=== PATIENT | female | born 1975 | race Caucasian/White ===

== ENCOUNTER 2023-02-28 13:46 | Outpatient (AMB) | payer OTHER, SELFPAY ==
--- NOTE | 2023-02-28 13:53 | MHC.OFFVIS ---
Intake Vital Signs 02/28/23 13:55 Height 5 ft 3 in Weight 169 lb 8 oz BMI 30.0 BP 138/84 Blood Pressure Location Rt brachial Position Sitting Pulse 64 Pulse Source Pulse Oximeter Pulse Oximetry (%) 98 Oxygen Delivery Method Room Air Intake Visit Reasons: [employer]OR - Cervical radiculopathy-LVM Intake Note: Pt presents today to establish care after neck surgery a year ago, since surgery she has (L) arm numbness all the time c nerve pain, states she has shooting pain down both legs c swelling . Allergies topiramate [From Topamax] Allergy (Severe, Verified 02/13/23 13:21) Chest Pain bisacodyl Allergy (Unknown, Verified 02/13/23 13:21) Unknown bupropion [From Wellbutrin SR] Allergy (Unknown, Verified 02/13/23 13:21) Chest Pain HPI HPI Comments History of Present Illness Details Right handed 48-yr-old female presents for neurological evaluation of LUE and BLE pain/paresthesias. Pt reports she has had neck issues for several years. She was seeing Dr Beltran for cervical radiculopathy, cervical stenosis, and?likely early myelopathy with predominantly RUE paresthia s/s. She underwent ACDF repair in Feb 2023. Immediately following the ACDF repair, pt developed upper chest numbness, ongoing neck tightness, constant LUE numbing pain (along inner aspect of arm through 3rd-5th fingers) and intermittent swelling, and intermittent BLE numbing pain and swelling. Her RUE symptoms improved. She had f/u w/ Dr Beltran who per pt, felt she had had improvements and her s/s were likely expected post-surgical changes. Thereafter, she had seen Dr Carvalho, who started her on high dose Gabapentin and increased tizanidine, which has helped w/ the arm pain. However, Dr Carvalho could not follow her for pain management. Since, she has since been seeing Dr Jackson at [facility], who is tapering pt off Gabapentin and starting her on Pregabalin- in hopes of alleviating some cognitive difficulties. She is still on Tizanidine and Oxycodone prn. She has been doing PT at [facility], which has helped the chest numbness, but continues to have LUE and BLE pain/numbness. She just had f/u c-spine MRI this week- results c/w C5-6 cervical myelomalacia and neural foraminal narrowing. Patient endorses: sleep difficulties, snoring, weight gain, bruxism. She also has migraine, sometimes with aura, a/w pressure pain, photo/phonophobia, N/V. Recently started on Aimovig as she was waking up everyday with a migraine- she feels this is helping. 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 C-spine MRI w/o, 02/26/23, [facility]: FINDINGS: There is mild reversal of the cervical lordosis. No subluxation is noted. Since the prior examination, the patient has undergone ACDF at C5-C6 and C6-C7. Susceptibility artifact from surgical hardware is noted. Subtle loss of height of C3-C4 is noted, and marginal spurring is present at this level as well as C5-C6 and C6-C7. The visualized posterior cranial fossa structures and cervicomedullary junction are unremarkable. Compression of the cervical cord at C5-C6 and C6-C7 is no longer present. T2 bright signal is present within the cervical cord (right greater than left) at C5-C6. The paraspinal soft tissues and visualized vertebral artery flow voids are unremarkable. C2-C3: Subtle left marginal spurring. No central canal or right foraminal stenosis. Minimal left foraminal narrowing. C3-C4: Minimal broad-based posterior disc-osteophyte complex with left-sided marginal spurring. No central canal stenosis. No significant foraminal narrowing. C4-C5: Subtle broad central disc protrusion. No significant central canal or foraminal narrowing. C5-C6: Postoperative changes as noted above. Right uncovertebral spurring is again noted. Central canal narrowing has essentially resolved. Mild to mild-moderate right foraminal narrowing. No left foraminal stenosis. C6-C7: Postoperative changes as above. Central canal stenosis is resolved. No significant foraminal narrowing. C7-T1: No central canal or foraminal stenosis. IMPRESSION: 1. Degenerative and postoperative changes of the cervical spine. Cord compression at C5-C6 and C6-C7 is no longer present. However, there is T2 bright signal within the cervical cord at C5-C6 which is compatible with myelomalacia. 2. Mild to mild-moderate right foraminal narrowing at C5-C6 due to marginal spurring. [facility] Medical History (Updated 02/28/23 @ 17:15 by PAMELA Whitehead) Complex renal cyst Calculus of kidney and ureter Raynauds disease Insomnia Depression Herpetic gingivostomatitis Social phobia Surgical History H/O arthrodesis Hx of discectomy Family History Father Seizures Kidney disease Cerebrovascular accident (CVA) Diabetes Thyroid disease Dementia Prostate cancer Brother Rheumatoid arthritis Urolith Brother Alcoholism Mother Lung tumor Diabetes Brother FAP (familial adenomatous polyposis) Brother Heart murmur Malignant tumor of testis Thyroid cancer Skin cancer Paternal Aunt Cerebrovascular accident (CVA) Social History (Updated 02/28/23 @ 14:05 by Amee Hurley) Household Members: Spouse and Children Alcohol intake: current Patient Tobacco Use Status: Never used Tobacco Review of Systems Const All systems reviewed & are unremarkable except as noted in HPI and below Physical Exam Vital Signs: Last Vital Signs Pulse 64 02/28/23 13:55 BP 138/84 02/28/23 13:55 Pulse Ox 98 02/28/23 13:55 Oxygen Delivery Method Room Air 02/28/23 13:55 BMI result Body Mass Index 30.0 Const General: cooperative and no acute distress Orientation/consciousness: patient oriented x3 HEENT Head: Yes normocephalic Resp Effort & Inspection: normal respiratory effort and able to speak in complete sentences Neuro Other: Bilateral jaw tightness, lower frontal teeth wearing Bilateral posterior cervical and upper trap tightness and tenderness. No pronator drift- although very mild postural tremor. General: patient oriented x3, gait normal and CN's II-XI intact bilaterally Gait exam (Neuro): Normal gait present Motor exam (neuro): 5/5 motor strength present throughout Sensory Exam: double simultaneous stimulation for sensation normal Deep tendon reflexes (DTR's): Right triceps reflex intensity grade: 3+, Left triceps reflex intensity grade: 2+, Rt Biceps (C5, C6): 3+, Left biceps reflex intensity grade: 2+, Right brachioradialis reflex intensity grade: 2+, Left brachioradialis reflex intensity grade: 2+, Right patellar reflex intensity grade: 2+, Left patellar reflex intensity grade: 2+, Right ankle reflex intensity grade: 2+ and Left ankle reflex intensity grade: 2+ Psych Appearance: grossly normal Mental Status: mental status grossly normal Speech and movement: Normal speech and movement present Affect: normal affect Attitude: cooperative Thought process: Normal thought process present Assessment & Plan Assessment & Plan (1) Cervical myelopathy: Code(s): G95.9 - Disease of spinal cord, unspecified (2) Tremor: Code(s): R25.1 - Tremor, unspecified (3) Paresthesias: Code(s): R20.2 - Paresthesia of skin (4) Sleep difficulties: Code(s): G47.9 - Sleep disorder, unspecified (5) Snoring: Code(s): R06.83 - Snoring (6) Excessive daytime sleepiness: Code(s): G47.19 - Other hypersomnia (7) Migraine with aura: Code(s): G43.109 - Migraine with aura, not intractable, without status migrainosus Plan Pt advised to undergo BUE EMG/NCS. Hold zolpidem. Trial Amitryptiline 10-30mg qhs- in hopes this helps pain, paresthesias, sleep. Trial alpha-lipoic acid 200-600mg qd. Continue PT. Pt advised to undergo HST to assess for sleep apnea. She may continue Aimovig- would monitor her Raynaud's s/s in setting of this CGRP MaB receptor antagonist. Pt may benefit from trying Nerivio for migraine / pain management. Future considerations- pain management referal. f/u upon review of above, and in-clinic in 3 months or sooner. Orders: Orders RT home sleep study Today G47.19 - Other hypersomnia, G47.9 - Sleep disorder, unspecified, R06.83 - Snoring NE electromyogram (EMG) Today G95.9 - Disease of spinal cord, unspecified, R20.2 - Paresthesia of skin, R25.1 - Tremor, unspecified Medications: New amitriptyline 10 - 30 mg (1 - 3 x 10 mg) PO BEDTIME 30 days 90 tabs 1RF alpha lipoic acid 200 - 600 mg (1 - 3 x 200 mg) PO DAILY 30 days 90 caps 1RF Coding Level of Care Code New Pt Level 4 (63475) Diagnoses Cervical myelopathy G95.9 Tremor R25.1 Paresthesias R20.2 Sleep difficulties G47.9 Snoring R06.83 Excessive daytime sleepiness G47.19 Migraine with aura G43.109
[2023-02-28 13:55] VITALS: BP 138/84; PULSE 64; O2SAT 98
== END 2023-02-28 15:34 | disposition home or self-care (01) ==
PROVIDERS: Visit Provider Nurse Practitioner Family
DX: G95.9 Disease of spinal cord, unspecified (principal); R25.1 Tremor, unspecified; R20.2 Paresthesia of skin; G47.9 Sleep disorder, unspecified; R06.83 Snoring; G47.19 Other hypersomnia; G43.109 Migraine with aura, not intractable, without status migrainosus
CPT/HCPCS: 99204

== ENCOUNTER → 2023-02-28 13:46 | Outpatient (BNVA) | payer OTHER, SELFPAY | PROVIDERS: Visit Provider Nurse Practitioner Family ==

== ENCOUNTER → 2023-04-18 08:36 | Outpatient (REF) | payer OTHER, SELFPAY | LOC: HO.SL 08:36 | PROVIDERS: PCP Family Medicine; Visit Provider Nurse Practitioner Family | DX: G47.9 Sleep disorder, unspecified (principal); R06.83 Snoring; G47.19 Other hypersomnia | CPT/HCPCS: 95806 ==

== ENCOUNTER → 2023-04-18 08:46 | Outpatient (BNV) | payer OTHER, SELFPAY | PROVIDERS: PCP Family Medicine; Visit Provider Psychiatry & Neurology Neurology | DX: R06.83 Snoring (principal) | CPT/HCPCS: 95806 ==

== ENCOUNTER 2023-06-13 08:45 | Outpatient (AMB) | payer OTHER, SELFPAY ==
--- NOTE | 2023-06-13 09:03 | A.OFFVIS_ITS ---
Intake Vital Signs 06/13/23 09:06 Height 5 ft 3 in BP 110/82 Blood Pressure Location Rt brachial Position Sitting Pulse 132 H Pulse Source Pulse Oximeter Pulse Oximetry (%) 98 Oxygen Delivery Method Room Air Intake Visit Reasons: 3month follow up/ Cervical radiculopathy-Confirmed Intake Note: Patient presents for 3 month follow up. [facility] never called for neurological testing but I have one in [place]. amitryptilene pished back due to weight gain Allergies topiramate [From Topamax] Allergy (Severe, Verified 06/13/23 09:06) Chest Pain bisacodyl Allergy (Unknown, Verified 06/13/23 09:06) Unknown bupropion [From Wellbutrin SR] Allergy (Unknown, Verified 06/13/23 09:06) Chest Pain Medication List - Last Reconciled 06/13/23 by PAMELA Whitehead acyclovir 200 mg PO TID alpha lipoic acid 200 - 600 mg (1 - 3 x 200 mg) PO DAILY 30 days alprazolam 0.25 mg PO TID amitriptyline 10 - 30 mg (1 - 3 x 10 mg) PO BEDTIME 30 days cetirizine (Zyrtec) 10 mg PO DAILY PRN duloxetine 60 mg PO DAILY erenumab-aooe (Aimovig Autoinjector) mg subcut fluticasone furoate 50 mcg/actuation inhalation gabapentin 600 mg PO TID ibuprofen 600 mg PO Q8H PRN levonorgestrel-ethinyl estrad 0.15-0.03 mg (Altavera (28)) 1 tab PO DAILY oxycodone 5 mg PO BID PRN pregabalin 75 mg PO DAILY sumatriptan succinate 100 mg PO Q2-4H PRN tizanidine 4 mg PO TID PRN zolpidem 10 mg PO BEDTIME HPI HPI Comments History of Present Illness Details 48-yr-old female presents for f/u visit. Pt denies any significant interval medical changes. In the past month, she has had 7 migraine days, and has a daily low level headache. She continues to have ongoing neck pain- the EMG- is scheduled 06/29/23. Pt reports she recently had a 5 day migraine. She did start Amitriptyline up to 30mg qhs- but PCP advised her to decrease it to 10mg qhs, as she had gained 15 lbs since starting it. She has resumed Aimovig x's 3 months, but not seeing significant benefit. The Sumatriptan helps but makes her very nausea. Will use Oxycodone as rescue. REPLACED BY [facility] Medical History (Updated 02/28/23 @ 17:15 by PAMELA Whitehead) Complex renal cyst Calculus of kidney and ureter Raynauds disease Insomnia Depression Herpetic gingivostomatitis Social phobia Surgical History H/O arthrodesis Hx of discectomy Family History Father Seizures Kidney disease Cerebrovascular accident (CVA) Diabetes Thyroid disease Dementia Prostate cancer Brother Rheumatoid arthritis Urolith Brother Alcoholism Mother Lung tumor Diabetes Brother FAP (familial adenomatous polyposis) Brother Heart murmur Malignant tumor of testis Thyroid cancer Skin cancer Paternal Aunt Cerebrovascular accident (CVA) Social History Household Members: Spouse and Children Alcohol intake: current Patient Tobacco Use Status: Never used Tobacco Review of Systems Const All systems reviewed & are unremarkable except as noted in HPI and below Physical Exam Vital Signs: Last Vital Signs Pulse 132 H 06/13/23 09:06 BP 110/82 06/13/23 09:06 Pulse Ox 98 06/13/23 09:06 Oxygen Delivery Method Room Air 06/13/23 09:06 Const General: cooperative and no acute distress Orientation/consciousness: patient oriented x3 HEENT Head: Yes normocephalic Resp Effort & Inspection: normal respiratory effort and able to speak in complete sentences Neuro General: patient oriented x3, gait normal and CN's II-XI intact bilaterally Cognition (Neuro): normal cognition Motor exam (neuro): 5/5 motor strength present throughout Psych Appearance: grossly normal Mental Status: mental status grossly normal Speech and movement: Normal speech and movement present Affect: normal affect Attitude: cooperative Thought process: Normal thought process present Thought content: Normal thought content present Insight: Good insight present (Psych) Judgement: Good judgement present (Psych) Assessment & Plan Assessment & Plan (1) Migraine with aura: Code(s): G43.109 - Migraine with aura, not intractable, without status migrainosus (2) Cervical myelopathy: Code(s): G95.9 - Disease of spinal cord, unspecified (3) Paresthesias: Code(s): R20.2 - Paresthesia of skin (4) Sleep difficulties: Code(s): G47.9 - Sleep disorder, unspecified Plan BUE EMG/NCS- as scheduled Continue decreased Amitryptiline 10 qhs- in hopes this helps pain, paresthesias, sleep w/o causing wt gain. Again may trial OTC Nervive or alpha-lipoic acid 200-600mg qd. Reviewed HST- normal Start Qulipta 30mg qhs- in hopes this is more effective then aimovig and may promote wt loss. Once qulipta available, stop Aimovig. Hold sumatriptan- causes nausea. Trial Rizatriptan prn. Pt may benefit from trying Nerivio for migraine / pain management. Future considerations- pain management referral. f/u upon review of above, and in-clinic in 4 months or sooner. Medications: New rizatriptan max 2 tabs per day or 4 tabs per week 5 - 10 mg (0.5 - 1 x 10 mg) PO Q2H 21 days PRN 12 tabs 3RF migraine headache atogepant at bedtime 30 mg PO DAILY 30 days 30 tabs 6RF Changed From amitriptyline 10 - 30 mg (1 - 3 x 10 mg) PO BEDTIME 30 days 90 tabs 1RF To amitriptyline 10 mg PO BEDTIME 30 days 30 tabs 1RF Coding Level of Care Code Est Pt Level 4 (42805) Diagnoses Migraine with aura G43.109 Cervical myelopathy G95.9 Paresthesias R20.2 Sleep difficulties G47.9
[2023-06-13 09:06] VITALS: BP 110/82; PULSE 132; O2SAT 98
== END 2023-06-13 10:12 | disposition home or self-care (01) ==
PROVIDERS: PCP Family Medicine; Visit Provider Nurse Practitioner Family
DX: G43.109 Migraine with aura, not intractable, without status migrainosus (principal); G95.9 Disease of spinal cord, unspecified; R20.2 Paresthesia of skin; G47.9 Sleep disorder, unspecified
CPT/HCPCS: 99214

== ENCOUNTER → 2023-06-13 08:45 | Outpatient (BNVA) | payer OTHER, SELFPAY | PROVIDERS: PCP Family Medicine; Visit Provider Nurse Practitioner Family ==

== ENCOUNTER 2023-06-29 09:02 | Outpatient (REF) | payer OTHER, SELFPAY ==
--- NOTE | 2023-06-29 | EMG_ITS ---
Bilateral median and ulnar motor and sensory studies were performed. Bilateral median and lateral antecubital sensory and sural sensory studies were performed and needle examination was performed. IMPRESSION: Right mid to lower cervical radiculopathy with no evidence of entrapment neuropathy. MD BETSEY Horan/KATIE / [phone]
== END 2023-06-29 09:03 | disposition home or self-care (01) ==
LOC: HO.NEURO 09:02
PROVIDERS: PCP Family Medicine; Visit Provider Nurse Practitioner Family
DX: R20.2 Paresthesia of skin (principal); R25.1 Tremor, unspecified; G95.9 Disease of spinal cord, unspecified
CPT/HCPCS: 95886; 95913

== ENCOUNTER 2023-08-16 09:24 | Outpatient (AMB) | payer OTHER, SELFPAY ==
--- NOTE | 2023-08-16 09:39 | A.SPINEOV_ITS ---
Intake Intake Visit Reasons: radiculopathy, cervical region Intake Note: Ms. Grigsby is here today c/o neck pain. 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 Clotlide is a pleasant 48-year-old female who comes in today with a chief complaint of bilateral arm numbness and pain. She also reports associated symptoms of anterior thigh numbness and pain. She reports that in 2021 she had a C5-6, C6-7 ACDF completed at [facility]. She states that prior to the surgery she had burni ng/tingling in her bilateral 3rd phalanges. She reports this was her only symptom. Unfortunately, she had some operative complications and was left with significant postoperative symptoms. It is unclear exactly what happened but after surgery she began having bilateral dull shooting pains with associated numbness that starts in her bilateral deltoids and shoots all the way into her bilateral 3rd phalanges. She also gradually developed anterior thigh pain and numbness. She followed up with the neurosurgeon's office who she reports was satisfied that she was not paraplegic and discharged her from the practice, after informing her that the surgery did not go as planned. She attended several weeks of physical therapy, and had no significant relief of her symptoms. She has attempted pain relief for the past year with only minimal improvement. She currently is taking both Lyrica and oxycodone with only modest relief. She is seeking evaluation today for resolution of her postoperative symptoms. PMH: C5-6, C6-7 ACDF. Depression, insomnia, hyperlipidemia. Social hx: Patient does not smoke, reports no substance use. Medications: Oxycodone, acyclovir, Lyrica, zolpidem, amitriptyline, duloxetine, rizatriptan, Qulipta. Allergies: NKDA. Physical exam: The patient has 5/5 strength in her upper and lower extremities. She is able to ambulate well and does not have an antalgic gait. She reports increased numbness from her bilateral deltoids to her bilateral 3rd phalanges. She also reports dullness to touch over her anterior thighs and her left lateral torso. The rest of her sensation is intact. Her reflexes are 3+ hyperactive diffusely. (+) Bonds's bilaterally, (+) 2 beats of clonus bilaterally, (-) Romberg's. Imaging review: MRI of the cervical spine completed at [place] in 2017 showed severe degenerative disc disease at C5-6 and C6-7 causing moderate central canal stenosis, and mild-moderate bilateral foraminal stenosis at these levels, worse on the right. MRI completed postoperatively in 2021 shows cord signal change at C5-6, which is seen predominantly on the right side when viewing the axial films. There is postoperative resolution of the central canal stenosis at C5-6 and C6-7, however there still remains some right-sided foraminal stenosis at C5- 6. Impression: Clotilde is a pleasant 48-year-old female who comes in today with a chief complaint of bilateral arm numbness/pain and anterior thigh pain after having a C5-6 and C6-7 ACDF completed at [facility]. She reports that her symptoms have remained the same since she attended physical therapy after her surgery. Unfortunately they have not resolved or gotten any better even with the administration of many different prescription medications. After reviewing her pre and postoperative films with Dr. Bray it appears that she had some kind of cervical spinal cord trauma during the surgery causing her to have myelopathic reflexes and likely permanent numbness/tingling and pain. Thankfully she still has very good strength and does not have an antalgic gait. It does not appear that she has had any loss of proprioception. Dr. Bray and I discussed with Clotilde that her symptoms are likely permanent from the postoperative complications, however they should not worsen as time continues to progress unless she develops adjacent segment disease above or below her levels of fusion. She was encouraged to continue conservative management with her primary care physician and [facility]. She may follow up with us at any time in the future if she develops new neurlogical symptoms. Thank you for allowing us to care for your patient. The total time spent with this visit with this patient was 45 minutes reviewing history, physical exam, MRI imaging review, and implementation of treatment plan or further diagnostic testing Vicente Bray MD,PhD [facility] Coding Level of Care Code New Pt Level 4 (37806) Diagnoses Cervical myelopathy G95.9
== END 2023-08-16 10:23 | disposition home or self-care (01) ==
PROVIDERS: PCP Family Medicine; Referring Provider Nurse Practitioner Family; Visit Provider Neurological Surgery
DX: G95.9 Disease of spinal cord, unspecified (principal)
CPT/HCPCS: 99204

== ENCOUNTER → 2023-08-16 09:24 | Outpatient (BNVA) | payer OTHER, SELFPAY | PROVIDERS: PCP Family Medicine; Referring Provider Nurse Practitioner Family; Visit Provider Neurological Surgery ==

== ENCOUNTER 2023-10-25 09:36 | Outpatient (AMB) | payer OTHER, SELFPAY ==
[2023-10-25 09:39] VITALS: BP 120/82; PULSE 130; O2SAT 99; BMI 33.7
--- NOTE | 2023-10-25 09:39 | A.OFFVIS_ITS ---
Vital Signs 10/25/23 09:39 Height 5 ft 3 in Weight 190 lb BMI 33.7 BP 120/82 Blood Pressure Location Rt brachial Position Sitting Pulse 130 H Pulse Source Pulse Oximeter Pulse Oximetry (%) 99 Oxygen Delivery Method Room Air Intake Visit Reasons: 4 mnts f/u appt-LVM Intake Note: Patient presents for 4 month follow up. Allergies topiramate [From Topamax] Allergy (Severe, Verified 10/25/23 09:41) Chest Pain bisacodyl Allergy (Unknown, Verified 10/25/23 09:41) Unknown bupropion [From Wellbutrin SR] Allergy (Unknown, Verified 10/25/23 09:41) Chest Pain Medication List - Last Reconciled 10/25/23 by PAMELA Whitehead acyclovir 200 mg PO TID alpha lipoic acid 200 - 600 mg (1 - 3 x 200 mg) PO DAILY 30 days alprazolam 0.25 mg PO TID amitriptyline 10 mg PO BEDTIME 30 days atogepant 30 mg PO DAILY 30 days cetirizine (Zyrtec) 10 mg PO DAILY PRN duloxetine 60 mg PO DAILY erenumab-aooe (Aimovig Autoinjector) mg subcut fluticasone furoate 50 mcg/actuation inhalation gabapentin 600 mg PO TID ibuprofen 600 mg PO Q8H PRN levonorgestrel-ethinyl estrad 0.15-0.03 mg (Altavera (28)) 1 tab PO DAILY oxybutynin chloride 5 mg PO DAILY oxycodone 5 mg PO BID PRN pregabalin 75 mg PO DAILY rizatriptan 5 - 10 mg (0.5 - 1 x 10 mg) PO Q2H PRN 21 days sumatriptan succinate 100 mg PO Q2-4H PRN tizanidine 4 mg PO TID PRN zolpidem 10 mg PO BEDTIME HPI Comments Details: 48-yr-old female presents for f/u visit. Pt denies any significant interval medical changes. Her HR today is elevated- HR initially 130s, on re-check 104-106, RRR. Denies SOB, chest pain, lightheadedness. Pt did have [facility] EMG/NCS which showed Right mid to lower cervical radiculopathy with no evidence of entrapment neuropathy. [place] [facility] [place]- was advised that her that there was no surgical intervention for her post-op C5-6 and C6-7 ACDF s/s of neck, chest, bilateral arm numbness/pain/muscle spasm, and anterior thigh pain. Pt was advsied these s/s are likely to be permanent, but should not progress. She was encouraged to continue PT- will need PT indefinitely d/t cervical spinal cord injury. She is currently doing PT at [facility] w/ Vane Ramirez- doing dry needling, which is helpful. She has started Qulipta 30mg qhs- tolerating well. She has not had many breakthrough migraines- she thinks these occurred when her Qulipta was delayed d/t not available at the pharmacy. She is tolerating the Rizatriptan is better tolerated than the Sumatriptan. Baseline headache characteristics: Sometimes with aura, a/w pressure pain, photo/phonophobia, N/V. [facility] Medical History (Updated 10/25/23 @ 10:15 by PAMELA Whitehead) Complex renal cyst Calculus of kidney and ureter Raynauds disease Insomnia Depression Herpetic gingivostomatitis Social phobia Surgical History H/O arthrodesis Hx of discectomy Family History Father Seizures Kidney disease Cerebrovascular accident (CVA) Diabetes Thyroid disease Dementia Prostate cancer Brother Rheumatoid arthritis Urolith Brother Alcoholism Mother Lung tumor Diabetes Brother FAP (familial adenomatous polyposis) Brother Heart murmur Malignant tumor of testis Thyroid cancer Skin cancer Paternal Aunt Cerebrovascular accident (CVA) Social History Household Members: Spouse and Children Alcohol intake: current Patient Tobacco Use Status: Never used Tobacco Physical Exam Vital Signs: Last Vital Signs Pulse 130 H 10/25/23 09:39 BP 120/82 10/25/23 09:39 Pulse Ox 99 10/25/23 09:39 Oxygen Delivery Method Room Air 10/25/23 09:39 BMI result Body Mass Index 33.7 Const General: cooperative and no acute distress Orientation/consciousness: patient oriented x3 Resp Effort & Inspection: normal respiratory effort and able to speak in complete sentences Cardio Rate: regular rate Rhythm: regular rhythm Neuro Other: Bilateral posterior cervical tightness. General: patient oriented x3 Cranial nerves: Yes CN's II-XII intact bilaterally Cognition (Neuro): normal cognition Psych Appearance: grossly normal Mental Status: mental status grossly normal Speech and movement: Normal speech and movement present Affect: normal affect Attitude: cooperative Assessment & Plan Assessment & Plan (1) Tachycardia: Code(s): R00.0 - Tachycardia, unspecified Category: Medical (2) Migraine with aura: Code(s): G43.109 - Migraine with aura, not intractable, without status migrainosus Category: Medical (3) Cervical radiculopathy: Code(s): M54.12 - Radiculopathy, cervical region Category: Medical (4) Cervical myelopathy: Code(s): G95.9 - Disease of spinal cord, unspecified Category: Medical Plan For asymptomatic tachycardia- check baseline EKG- order slip given to pt- may do at [facility] For cervical myelopathy. Reviewed [facility] EMG/NCS and neurosurgery consult- continue PT and current pain regimen. Continue PT Continue to f/u w/ [facility]. For migarine prevention: Continue decreased Amitryptiline 10 qhs- also for pain, paresthesias, sleep. Higher dose caused wt gain. Continue Qulipta 30mg qhs, as pt has had > 50% reduction in monthly migraine days. Previous tx trials: Aimovig- lost effectiveness. For acute migraine tx: Continue Rizatriptan prn. Previous tx trials: Sumatriptan caused nausea. Future considerations- pain management referral. f/u upon review of above, and in-clinic in 4 months or sooner. Orders: Orders ECG 12 lead EKG Today R00.0 - Tachycardia, unspecified Coding Level of Care Code Est Pt Level 4 (77888) Diagnoses Tachycardia R00.0 Migraine with aura G43.109 Cervical radiculopathy M54.12 Cervical myelopathy G95.9
== END 2023-10-25 10:19 | disposition home or self-care (01) ==
PROVIDERS: PCP Family Medicine; Visit Provider Nurse Practitioner Family
DX: R00.0 Tachycardia, unspecified (principal); G43.109 Migraine with aura, not intractable, without status migrainosus; M54.12 Radiculopathy, cervical region; G95.9 Disease of spinal cord, unspecified
CPT/HCPCS: 99214

== ENCOUNTER → 2023-10-25 09:36 | Outpatient (BNVA) | payer OTHER, SELFPAY | PROVIDERS: PCP Family Medicine; Visit Provider Nurse Practitioner Family ==

== ENCOUNTER 2024-05-15 09:56 | Outpatient (AMB) | payer OTHER, SELFPAY ==
--- NOTE | 2024-05-15 09:58 | A.OFFVIS_ITS ---
Vital Signs 05/15/24 09:59 Height 5 ft 3 in Weight 187 lb 2 oz BMI 33.1 BP 124/84 Blood Pressure Location Rt brachial Position Sitting Pulse 112 H Pulse Source Pulse Oximeter Pulse Oximetry (%) 97 Oxygen Delivery Method Room Air Intake Visit Reasons: 7 month F/U Fourdrinier Tender Required: No Accompanied by: Self / Same As Patient Allergies topiramate [From Topamax] Allergy (Severe, Verified 05/15/24 10:02) Chest Pain bisacodyl Allergy (Unknown, Verified 05/15/24 10:02) Unknown bupropion [From Wellbutrin SR] Allergy (Unknown, Verified 05/15/24 10:02) Chest Pain Medication List - Last Reconciled 05/15/24 by PAMELA Whitehead acyclovir 200 mg PO TID alpha lipoic acid 200 - 600 mg (1 - 3 x 200 mg) PO DAILY 30 days alprazolam 0.25 mg PO TID amitriptyline 10 mg PO BEDTIME 30 days atogepant 30 mg PO DAILY 30 days cetirizine (Zyrtec) 10 mg PO DAILY PRN duloxetine 60 mg PO DAILY erenumab-aooe (Aimovig Autoinjector) mg subcut fluticasone furoate 50 mcg/actuation inhalation ibuprofen 600 mg PO Q8H PRN levonorgestrel-ethinyl estrad 0.15-0.03 mg (Altavera (28)) 1 tab PO DAILY oxybutynin chloride 5 mg PO DAILY oxycodone 5 mg PO BID PRN pregabalin 150 mg PO DAILY rizatriptan 5 - 10 mg (0.5 - 1 x 10 mg) PO Q2H PRN 21 days sumatriptan succinate 100 mg PO Q2-4H PRN tizanidine 4 mg PO TID PRN zolpidem 10 mg PO BEDTIME Do you need a note to return to daycare/school/sports/work: No HPI Comments Details: 49-yr-old female presents for f/u visit. Pt denies any significant interval medical changes. She is not sure if she had the EKG to assess her assymptomatic tachycardia. She has been having worsening acid reflux over last several months- may/may not correlate w/ starting Qulipta. She is seeing GI. Undergoing work-up. Pt reports in late Mar-mid-Apr, she had a 3 week migraine, which may have been triggered by seasonal allergies. She happened to have an appointment w/ Dr Jackson at [facility]- who gave her ? bilateral occipital/neck trigger point in jections, which did seem to help. She has started Qulipta 30mg qhs- tolerating well. She is tolerating the Rizatriptan well, does always work the greatest- takes the edge off. Baseline headache characteristics: Sometimes with aura, a/w pressure pain, photo/phonophobia, N/V. [facility] Medical History Complex renal cyst Calculus of kidney and ureter Raynauds disease Insomnia Depression Herpetic gingivostomatitis Social phobia Surgical History H/O arthrodesis Hx of discectomy Family History Father Seizures Kidney disease Cerebrovascular accident (CVA) Diabetes Thyroid disease Dementia Prostate cancer Brother Rheumatoid arthritis Urolith Brother Alcoholism Mother Lung tumor Diabetes Brother FAP (familial adenomatous polyposis) Brother Heart murmur Malignant tumor of testis Thyroid cancer Skin cancer Paternal Aunt Cerebrovascular accident (CVA) Social History Household Members: Spouse and Children Alcohol intake: current Patient Tobacco Use Status: Never used Tobacco Physical Exam Vital Signs: Last Vital Signs Pulse 112 H 05/15/24 09:59 BP 124/84 05/15/24 09:59 Pulse Ox 97 05/15/24 09:59 Oxygen Delivery Method Room Air 05/15/24 09:59 BMI result Body Mass Index 33.1 Assessment & Plan Assessment & Plan (1) Tachycardia: Code(s): R00.0 - Tachycardia, unspecified Category: Medical (2) Migraine with aura: Code(s): G43.109 - Migraine with aura, not intractable, without status migrainosus Category: Medical (3) Cervical radiculopathy: Code(s): M54.12 - Radiculopathy, cervical region Category: Medical (4) Cervical myelopathy: Code(s): G95.9 - Disease of spinal cord, unspecified Category: Medical Plan For asymptomatic tachycardia- again check baseline EKG- order slip given to pt- [facility] including any previous [facility]. For cervical myelopathy. Continue PT exercises and current pain regimen. Concur w/ prn cervical/occipital trigger point injections. Continue to f/u w/ [facility]. For migraine prevention: Continue decreased Amitryptiline 10 qhs p.r.n.- also for pain, paresthesias, sleep. Higher dose caused wt gain. Continue Qulipta 30mg qhs, as pt has had > 50% reduction in monthly migraine days. Previous tx trials: Aimovig- lost effectiveness. For acute migraine tx: Hold Rizatriptan prn. Trial Eletriptan 40mg tab, 1/2 - 1 tab (20-40mg) at onset of headache, may repeat in 2 hours. Max of 2 tabs (40mg) per 24 hours. May adjunct with OTC Tylenol 650mg every 4 hours, Ibuprofen (liquigel) 600mg every 6 hours, or Naproxen (liquigel) 440mg every 12 hrs as needed. Potential adverse effects of triptans, include but are not limited to nausea, fatigue, chest tightness/tingling (usually passes within a few minutes), medication overuse headaches. Trial of metoclopramide 5-10 mg q.4-6 hours p.r.n. migraine headache, nausea, vomiting. Reviewed common side effects, including risks for tardive dyskinesia. Previous tx trials: Sumatriptan caused nausea. Future considerations- trial of DHE for prolonged migraine, only after review of EKG. Will follow-up upon review of above and patient to follow-up in clinic in 6 months or sooner prn. Medications: New eletriptan do not exceed 2 doses per 24 hrs 40 mg PO Q2H 30 days PRN 12 tabs 6RF migraine headache metoclopramide HCl 5 - 10 mg (1 - 2 x 5 mg) PO Q4-6H 30 days PRN 30 tabs 1RF migraine and nausea and vomiting Coding Level of Care Code Est Pt Level 4 (09654) Diagnoses Tachycardia R00.0 Migraine with aura G43.109 Cervical radiculopathy M54.12 Cervical myelopathy G95.9
[2024-05-15 09:59] VITALS: BP 124/84; PULSE 112; O2SAT 97; BMI 33.1
== END 2024-05-15 10:57 | disposition home or self-care (01) ==
PROVIDERS: PCP Family Medicine; Visit Provider Nurse Practitioner Family
DX: R00.0 Tachycardia, unspecified (principal); G43.109 Migraine with aura, not intractable, without status migrainosus; M54.12 Radiculopathy, cervical region; G95.9 Disease of spinal cord, unspecified
CPT/HCPCS: 99214

== ENCOUNTER → 2024-05-15 09:56 | Outpatient (BNVA) | payer OTHER, SELFPAY | PROVIDERS: PCP Family Medicine; Visit Provider Nurse Practitioner Family ==

== ENCOUNTER 2024-07-05 09:21 | Outpatient (AMB) | payer OTHER, SELFPAY ==
--- NOTE | 2024-07-05 09:22 | HO.SPINEOV ---
Intake Visit Reasons: cervical radiculopathy/new referral Intake Note: Ms. Grigsby is here today c/o neck pain, with burning and headaches. Training Facilitator Required: No Allergies topiramate [From Topamax] Allergy (Severe, Verified 07/05/24 09:27) Chest Pain bisacodyl Allergy (Unknown, Verified 07/05/24 09:27) Unknown bupropion [From Wellbutrin SR] Allergy (Unknown, Verified 07/05/24 09:27) Chest Pain Assessment & Plan Assessment & Plan (1) Cervical myelopathy: Code(s): G95.9 - Disease of spinal cord, unspecified Category: Medical Plan Dear colleague On 07/05/2024 I saw Clotilde Grigsby for a new complaint of tingling/electric shocks on the left side of her neck. As you know, she developed bilateral arm numbness/pain and anterior thigh pain after having a C5-6 and C6-7 ACDF at [facility]. An MRI shows myelomalacia at C5-C6. She was advised to return to our office if any new symptoms developed. The electric shocks started a few months ago and have progressed. Her other postoperative sequelae have remained the same. Exam shows a myelopathic neurological exam. I will order a new MRI of the cervical spine to make sure that she is not developing spinal cord compression adjacent to the previous fusion. She will follow-up with me after the studies done. I spent 20 minutes in his consult for history and discussing plan of care. Dilip Bray MD, PhD Spine Fellowship Trained Neurosurgeon Director, [facility] Orders: Orders MR cervical spine wo con Today G95.9 - Disease of spinal cord, unspecified Coding Level of Care Code Est Pt Level 3 (19873) Diagnoses Cervical myelopathy G95.9
== END 2024-07-05 09:41 | disposition home or self-care (01) ==
PROVIDERS: PCP Family Medicine; Visit Provider Neurological Surgery
DX: G95.9 Disease of spinal cord, unspecified (principal)
CPT/HCPCS: 99213

== ENCOUNTER → 2024-07-24 07:20 | Outpatient (BNV) | payer OTHER, SELFPAY | PROVIDERS: PCP Family Medicine; Visit Provider Radiology Diagnostic Radiology | DX: M47.812 Spondylosis without myelopathy or radiculopathy, cervical region (principal); M48.02 Spinal stenosis, cervical region | CPT/HCPCS: 72141 ==

== ENCOUNTER 2024-07-24 07:26 | Outpatient (REF) | payer OTHER, SELFPAY ==
--- NOTE | ~2024-07-24 | MR_ITS ---
EXAMINATION: MR CERVICAL SPINE WITHOUT CONTRAST CLINICAL INFORMATION: CT scan of spinal cord, unspecified. Left-sided numbness. Prior cervical fusion surgery in 2021. COMPARISON: None available. TECHNIQUE: MRI of the cervical spine was obtained using routine sequences without contrast. FINDINGS: Paramagnetic field distortion secondary to metallic hardware at C5-6. Craniocervical junction is intact. No bone marrow STIR signal abnormality. Multilevel disc desiccation more conspicuous at C3-4 and C4-5 levels. There is a focal hyperintense T2 STIR cord signal abnormality with associated volume loss at C5-6. There is normal alignment. C2-3: No disc herniation. No neuroforamina stenosis. C3-4: Broad-based disc osteophyte complex formation resulting in ventral CSF effacement of the thecal sac and abutting the cord. Left neuroforamina narrowing on a degenerative basis. C4-5: There is a broad-based central right subarticular and foraminal disc osteophyte complex formation resulting in ventral deformity of the spinal cord and CSF effacement of the thecal sac. No cord signal abnormality. No neuroforamina stenosis. C5-6: Postsurgical changes with ventral deformity of the spinal cord flattening and intrinsic hyperintense T2 STIR signal abnormality in the right and left hemicord. No neuroforamina stenosis. C6-7: Postsurgical changes. There is central spinal canal stenosis with the ventral deformity of the spinal cord and cord deformity. There is CSF in the dorsal aspect of the thecal sac. No neuroforamina stenosis. C7-T1: No disc herniation. No neuroforamina stenosis. No prevertebral compartment hematoma, mass or fluid collection. Flow-void signal within the main vessels is normal. Right vertebral artery slightly dominant. Nonspecific prominent cervical lymph nodes. MR/MR cervical spine wo con IMPRESSION: Status post trauma anterior intervertebral body discs spacer placement C5-6 with the central spinal canal stenosis and myelopathy/myomalacia secondary to spondylosis. Multilevel cervical spondylosis C4-5 and to a lesser extent C3-4 resulting in central spinal canal stenosis without cord edema and or myelopathy. Electronically signed by: Prabhakar Bhakta MD 07/24/2024 08:11 AM [facility] [place]
== END 2024-07-24 07:27 | disposition home or self-care (01) ==
LOC: HO.MRI 07:26
PROVIDERS: PCP Family Medicine; Visit Provider Neurological Surgery
DX: G95.9 Disease of spinal cord, unspecified (principal)
CPT/HCPCS: 72141

== ENCOUNTER 2024-08-23 11:17 | Outpatient (AMB) | payer OTHER, SELFPAY ==
--- NOTE | 2024-08-23 11:37 | HO.SPINEOV ---
Intake Visit Reasons: MRI f/u Intake Note: Ms. Grigsby is here to F/u on the results to her MRI. Paper Sales Representative Required: No Allergies topiramate [From Topamax] Allergy (Severe, Verified 07/05/24 09:27) Chest Pain bisacodyl Allergy (Unknown, Verified 07/05/24 09:27) Unknown bupropion [From Wellbutrin SR] Allergy (Unknown, Verified 07/05/24 09:27) Chest Pain Assessment & Plan Assessment & Plan (1) Cervical myelopathy: Code(s): G95.9 - Disease of spinal cord, unspecified Category: Medical Plan Dear colleague, On 08/23/2024 I saw for follow-up Clotilde Grigsby to review an MRI of the cervical spine. As you know she is status post anterior cervical fusion at [facility]. She suffered from neurological injury. She came to see me for 2nd opinion in the past. Recently she stated she had more electric shocks and we decided to repeat an MRI of the cervical spine to make sure there is no adjacent degenerative disc disease with spinal cord compression. I reviewed the MRI in detail and it shows adjacent disc bulging but fortunately without significant spinal cord compression. Therefore, I did not recommend a surgical intervention at this time. She will return to my office if more symptoms develop. I spent 20 minutes in his consult to review imaging and discussing plan of care. Dilip Bray MD, PhD Spine Fellowship Trained Neurosurgeon Director, [facility] Coding Level of Care Code Est Pt Level 3 (92605) Diagnoses Cervical myelopathy G95.9
== END 2024-08-23 11:59 | disposition home or self-care (01) ==
LOC: HO.HNS 11:18
PROVIDERS: PCP Family Medicine; Visit Provider Neurological Surgery
DX: G95.9 Disease of spinal cord, unspecified (principal)
CPT/HCPCS: 99213

== ENCOUNTER → 2024-08-23 11:17 | Outpatient (BNVA) | payer OTHER, SELFPAY | PROVIDERS: PCP Family Medicine; Visit Provider Neurological Surgery ==

== ENCOUNTER 2024-11-22 08:37 | Outpatient (AMB) | payer OTHER, SELFPAY ==
--- NOTE | 2024-11-22 08:56 | MHC.OFFVIS ---
Vital Signs 11/22/24 08:57 Height 5 ft 3 in Weight 169 lb BMI 29.9 BP 100/72 Blood Pressure Location Lt brachial Position Sitting Pulse 85 Pulse Source Pulse Oximeter Pulse Oximetry (%) 98 Oxygen Delivery Method Room Air Intake Visit Reasons: Follow Up 6mo Intake Note: Patient presents follow up for migraines Air Cargo Agent Required: No Accompanied by: Self / Same As Patient Allergies topiramate (From Topamax) Allergy (Severe, Verified 11/22/24 08:57) Chest Pain bisacodyl Allergy (Unknown, Verified 11/22/24 08:57) Unknown bupropion (From Wellbutrin SR) Allergy (Unknown, Verified 11/22/24 08:57) Chest Pain Medication List - Last Reconciled 11/22/24 by PAMELA Whitehead acyclovir 200 mg PO TID alpha lipoic acid 200 - 600 mg (1 - 3 x 200 mg) PO DAILY 30 days alprazolam 0.25 mg PO TID amitriptyline 10 mg PO BEDTIME 30 days atogepant 30 mg PO DAILY 30 days cetirizine (Zyrtec) 10 mg PO DAILY PRN duloxetine 60 mg PO DAILY eletriptan 40 mg PO Q2H PRN 30 days fluticasone furoate 50 mcg/actuation inhalation ibuprofen 600 mg PO Q8H PRN levonorgestrel-ethinyl estrad 0.15-0.03 mg (Altavera (28)) 1 tab PO DAILY metoclopramide HCl 5 - 10 mg (1 - 2 x 5 mg) PO Q4-6H PRN 30 days oxybutynin chloride 5 mg PO DAILY oxycodone 5 mg PO BID PRN pregabalin 150 mg PO DAILY rizatriptan 5 - 10 mg (0.5 - 1 x 10 mg) PO Q2H PRN 21 days sumatriptan succinate 100 mg PO Q2-4H PRN tizanidine 4 mg PO TID PRN zolpidem 10 mg PO BEDTIME Do you need a note to return to daycare/school/sports/work: No HPI Comments Details: 49-yr-old female presents for f/u visit of migraine and cervicalgia. Pt denies any significant interval medical changes. She has been having some increase in her neck pain. Saw her neurosurgeon, and had follow-up C-spine imaging showing per patient increased cervical CSF fluid accumulation. They recommended her to continue conservative tx. She has been trying to increase her cervical ROM, and to get up from her desk every hour- which she feels is helping. She states Dr Jackson, her pain management provider at [facility],- is considering weaning her off of the pregabalin d/t ongoing GERD and brain fog s/s. She has also been having lower back pain with pain radiating down into both legs. She has seen her PCP for this, and is to start PT. July 24 2004, MR/MR cervical spine wo con IMPRESSION: Status post trauma anterior intervertebral body discs spacer placement C5-6 with the central spinal canal stenosis and myelopathy/myomalacia secondary to spondylosis. Multilevel cervical spondylosis C4-5 and to a lesser extent C3-4 resulting in central spinal canal stenosis without cord edema and or myelopathy. Pt reports she has not had a bad migraine in a while. She has started Qulipta 30mg qhs- tolerating well. She is tolerating the Rizatriptan well, does always work the greatest- takes the edge off. Did try eletriptan, also helps- but unsure if more effective or not than the rizatriptan. metoclopramide is helpful- using sparingly. Still weaning off low dose amitriptyline. She has also stopped her control about 3 months ago, and at the point, the migraines did increase, but since have decreased. Has not had a recurrence of previous menstrual migraine since coming of the OCP. Baseline headache characteristics: Sometimes with aura, a/w pressure pain, photo/phonophobia, N/V. [facility] Medical History Complex renal cyst Calculus of kidney and ureter Raynauds disease Insomnia Depression Herpetic gingivostomatitis Social phobia Surgical History H/O arthrodesis Hx of discectomy Family History Father Seizures Kidney disease Cerebrovascular accident (CVA) Diabetes Thyroid disease Dementia Prostate cancer Brother Rheumatoid arthritis Urolith Brother Alcoholism Mother Lung tumor Diabetes Brother FAP (familial adenomatous polyposis) Brother Heart murmur Malignant tumor of testis Thyroid cancer Skin cancer Paternal Aunt Cerebrovascular accident (CVA) Social History Household Members: Spouse and Children Alcohol intake: current Patient Tobacco Use Status: Never used Tobacco Physical Exam Vital Signs: Last Vital Signs Pulse 85 11/22/24 08:57 BP 100/72 11/22/24 08:57 Pulse Ox 98 11/22/24 08:57 Oxygen Delivery Method Room Air 11/22/24 08:57 BMI result Body Mass Index 29.9 Const General: cooperative and no acute distress Orientation/consciousness: patient oriented x3 Resp Effort & Inspection: normal respiratory effort and able to speak in complete sentences Neuro Other: Bilateral lower extremity muscle strength 5/5 General: patient oriented x3 Cranial nerves: Yes CN's II-XII intact bilaterally Cognition (Neuro): normal cognition Deep tendon reflexes (DTR's): Right patellar reflex intensity grade: 2+ and Left patellar reflex intensity grade: 2+ Psych Appearance: grossly normal Mental Status: mental status grossly normal Speech and movement: Normal speech and movement present Affect: normal affect Attitude: cooperative Assessment & Plan Assessment & Plan (1) Migraine with aura: Code(s): G43.109 - Migraine with aura, not intractable, without status migrainosus Category: Medical Qualifiers: Status migrainosus presence: without status migrainosus Intractability: not intractable Qualified Code(s): G43.109 - Migraine with aura, not intractable, without status migrainosus (2) Cervical radiculopathy: Code(s): M54.12 - Radiculopathy, cervical region Category: Medical (3) Cervical myelopathy: Code(s): G95.9 - Disease of spinal cord, unspecified Category: Medical Plan For cervical myelopathy: Continue PT exercises and current pain regimen. Continue to f/u w/ [facility] and Dr. Bray at [facility] neurosurgery. For low back pain: Concur with starting PT For migraine prevention: Continue decreased Amitryptiline 10 qhs p.r.n.- also for pain, paresthesias, sleep. Higher dose caused wt gain. Continue Qulipta 30mg qhs, as pt has had > 50% reduction in monthly migraine days. Previous tx trials: Aimovig- lost effectiveness. Migraine treatment contraindications: Topiramate d/t kidney stones. For acute migraine tx: Continue Rizatriptan prn. Continue Eletriptan 40mg tab, 1/2 - 1 tab (20-40mg) at onset of headache, may repeat in 2 hours. Max of 2 tabs (40mg) per 24 hours. May adjunct triptan with OTC Tylenol 650mg every 4 hours, Ibuprofen (liquigel) 600mg every 6 hours, or Naproxen (liquigel) 440mg every 12 hrs as needed. Patient to let us know which 1 is more effective. Continue metoclopramide 5-10 mg q.4-6 hours p.r.n. migraine headache, nausea, vomiting. Previous tx trials: Sumatriptan caused nausea. Future considerations- trial of DHE for prolonged migraine, only after review of EKG. Will follow-up upon review of above and patient to follow-up in clinic in 6 months or sooner prn. Medications: Refilled rizatriptan max 2 tabs per day or 4 tabs per week 5 - 10 mg (0.5 - 1 x 10 mg) PO Q2H PRN 12 tabs 6RF migraine headache 21 days eletriptan do not exceed 2 doses per 24 hrs 40 mg PO Q2H PRN 12 tabs 6RF migraine headache 30 days Coding Level of Care Code Est Pt Level 4 (68426) Diagnoses Migraine with aura and without status migrainosus, not intractable G43.109 Status migrainosus presence: without status migrainosus Intractability: not intractable Cervical radiculopathy M54.12 Cervical myelopathy G95.9
[2024-11-22 08:57] VITALS: BP 100/72; PULSE 85; O2SAT 98; BMI 29.9
== END 2024-11-22 10:00 | disposition home or self-care (01) ==
LOC: HO.HSMS 08:37
PROVIDERS: PCP Family Medicine; Visit Provider Nurse Practitioner Family
DX: G43.109 Migraine with aura, not intractable, without status migrainosus (principal); M54.12 Radiculopathy, cervical region; G95.9 Disease of spinal cord, unspecified
CPT/HCPCS: 99214